=== PATIENT | female | born 1965 | race Caucasian/White ===

== ENCOUNTER 2017-12-14 18:50 | Emergency (ER) | payer OTHER ==
[2017-12-14 18:58] VITALS: BMI 19.1
[2017-12-14 19:00] VITALS: O2SAT 100
[2017-12-14 19:32] VITALS: BP 128/81; PULSE 70; RESP 17; TEMP 98
--- NOTE | 2017-12-14 19:38 | ED PDOC ---
Arrival/HPI - General Chief Complaint: High Blood Pressure Time Seen by Provider: 12/14/17 19:04 - History of Present Illness Narrative History of Present Illness (Text): 12/14/17 19:35 52 yo female, presents for eval, after checking her b/p yesterday and noting it to be 160 systolic. pt stats she was asymptomatic during b/p check. upon arrival to ed b/p 128 sysotlic, denies complaints. no cp fever, cough, sob, abd pain, n/v/d, or other complaitns Past Medical History - Infectious Disease Hx of Infectious Diseases: None - Tetanus Immunization Tetanus Immunization: Unknown - Reproductive Menopause: No - Cardiac Hx Cardiac Disorders: Yes Hx Hypertension: Yes - Pulmonary Hx Respiratory Disorders: No - Neurological Hx Neurological Disorder: No - HEENT Hx HEENT Disorder: No - Renal Hx Renal Disorder: No - Endocrine/Metabolic Hx Endocrine Disorders: No - Hematological/Oncological Hx Blood Disorders: No - Integumentary Hx Dermatological Disorder: No - Musculoskeletal/Rheumatological Hx Musculoskeletal Disorders: No Hx Falls: No - Gastrointestinal Hx Gastrointestinal Disorders: No - Genitourinary/Gynecological Hx Genitourinary Disorders: No - Psychiatric Hx Psychophysiologic Disorder: No Hx Depression: No Hx Emotional Abuse: No Hx Physical Abuse: No Hx Substance Use: No - Past Surgical History Past Surgical History: No Previous - Anesthesia Hx Anesthesia: No - Suicidal Assessment Feels Threatened In Home Enviroment: No Family/Social History Family/Social History: Unknown Family HX Smoking Status: Never Smoked Hx Alcohol Use: No Hx Substance Use: No Hx Substance Use Treatment: No Allergies/Home Meds Allergies/Adverse Reactions: Allergies No Known Allergies Allergy (Verified 06/23/14 03:44) Home Medications: Home Meds Medication Instructions Recorded Confirmed Atenolol 50 mg PO DAILY 11/29/12 06/23/14 Calcium/Cyanocobalamin [Vitamin 1,000 mcg PO BID 04/10/14 06/23/14 B-12 23 mg-1000 Mcg] Ferrous Sulfate [Ferrous Sulfate] 325 mg PO TID 04/10/14 06/23/14 Ranitidine HCl [Zantac 150] 150 mg PO BID 04/10/14 06/23/14 Review of Systems - Review of Systems Constitutional: Normal Eyes: Normal ENT: Normal Respiratory: Normal Cardiovascular: Normal Gastrointestinal: Normal Genitourinary Female: Normal Musculoskeletal: Normal Skin: Normal Neurological: Normal Endocrine: Normal Hemo/Lymphatic: Normal Psychiatric: Normal Physical Exam Vital Signs Temp Pulse Resp BP Pulse Ox 12/14/17 19:15 98.0 F 70 17 128/81 100 12/14/17 18:59 98 F 79 18 140/77 100 Temperature: Afebrile Blood Pressure: Normal Pulse: Regular Respiratory Rate: Normal Appearance: Positive for: Well-Appearing, Non-Toxic, Comfortable, Other ( smiling in nad) Pain Distress: None Mental Status: Positive for: Alert and Oriented X 3 - Systems Exam Head: Present: Atraumatic, Normocephalic Pupils: Present: PERRL Extroacular Muscles: Present: EOMI Conjunctiva: Present: Normal Mouth: Present: Moist Mucous Membranes Neck: Present: Normal Range of Motion Respiratory/Chest: Present: Clear to Auscultation, Good Air Exchange. No: Respiratory Distress, Accessory Muscle Use Cardiovascular: Present: Regular Rate and Rhythm, Normal S1, S2. No: Murmurs Abdomen: No: Tenderness, Distention, Peritoneal Signs, Rebound, Guarding Back: Present: Normal Inspection Upper Extremity: Present: Normal Inspection. No: Cyanosis, Edema Lower Extremity: Present: Normal Inspection. No: Edema Neurological: Present: GCS=15, CN II-XII Intact, Speech Normal Skin: Present: Warm, Dry, Normal Color. No: Rashes Psychiatric: Present: Alert, Oriented x 3, Normal Insight, Normal Concentration Medical Decision Making ED Course and Treatment: 12/14/17 19:37 asymympomatic htn - pt declines any further eval in er, blood work, as b/p is now 128 systolic. advise outpt f/u Disposition/Present on Arrival - Present on Arrival Any Indicators Present on Arrival: No History of DVT/PE: No History of Uncontrolled Diabetes: No Urinary Catheter: No History of Decub. Ulcer: No History Surgical Site Infection Following: None - Disposition Have Diagnosis and Disposition been Completed?: Yes Diagnosis: High blood pressure Disposition: HOME/ ROUTINE Disposition Time: 19:38 Patient Problems: Current Active Problems Problem Status Onset High blood pressure Acute Condition: STABLE Discharge Instructions (ExitCare): High Blood Pressure in Adults Print Language: DIVEHI Additional Instructions: please follow up with your doctor. please return to er with worsening symptoms or concerns. Referrals: [facility] [employer] [facility], [Primary Care Provider] - Follow up with primary [facility] [Outside] - Follow up with primary [facility] [Outside] - Follow up with primary Forms: [employer] (Maltese)
== END 2017-12-14 19:43 | disposition home or self-care (01) ==
LOC: ED 18:50
DX: I10 Essential (primary) hypertension (principal)

== ENCOUNTER 2018-10-31 11:58 | Emergency (ER) | payer OTHER ==
[2018-10-31 12:14] VITALS: BP 121/74; PULSE 77; RESP 18; TEMP 98.6; O2SAT 100
--- NOTE | 2018-10-31 12:35 | ED PDOC ---
Arrival/HPI - General Chief Complaint: ENT Problem Time Seen by Provider: 10/31/18 12:11 Historian: Patient - History of Present Illness Narrative History of Present Illness (Text): 10/31/18 12:31 53 year old female, with past medical history of hypertension, presents to the ED for evaluation of right ear pain since 2 weeks. Patient informs unchanged symptoms since onset but denies any trauma or injury to the area. Patient denies following up with her PMD regarding the symptoms. Patient denies any other associated somatic complaints. Patient denies any fevers, chills, sore throat, headache, dizziness, chest pain, shortness of breath, dyspnea on exertion, cough, abdominal pain, nausea, vomiting, diarrhea, back pain, neck pain, or any other complaints. PMD: Dr. Segura Time/Duration: > week Symptom Onset: Gradual Symptom Course: Unchanged Quality: Aching Activities at Onset: Light Context: Home Past Medical History - Provider Review Nursing Documentation Reviewed: Yes - Infectious Disease Hx of Infectious Diseases: None - Tetanus Immunization Tetanus Immunization: Unknown - Cardiac Hx Cardiac Disorders: Yes Hx Hypertension: Yes - Pulmonary Hx Respiratory Disorders: No - Neurological Hx Neurological Disorder: No - HEENT Hx HEENT Disorder: No - Renal Hx Renal Disorder: No - Endocrine/Metabolic Hx Endocrine Disorders: No - Hematological/Oncological Hx Blood Disorders: No - Integumentary Hx Dermatological Disorder: No - Musculoskeletal/Rheumatological Hx Musculoskeletal Disorders: No Hx Falls: No - Gastrointestinal Hx Gastrointestinal Disorders: No - Genitourinary/Gynecological Hx Genitourinary Disorders: No - Psychiatric Hx Psychophysiologic Disorder: No Hx Substance Use: No - Past Surgical History Past Surgical History: No Previous - Anesthesia Hx Anesthesia: No - Suicidal Assessment Feels Threatened In Home Enviroment: No Family/Social History - Physician Review Nursing Documentation Reviewed: Yes Family/Social History: No Known Family HX Smoking Status: Never Smoked Hx Alcohol Use: No Hx Substance Use: No Hx Substance Use Treatment: No Allergies/Home Meds Allergies/Adverse Reactions: Allergies No Known Allergies Allergy (Verified 06/23/14 03:44) Home Medications: Home Meds Medication Instructions Recorded Confirmed RX: Atenolol 50 mg PO DAILY 11/29/12 06/23/14 Calcium/Cyanocobalamin [Vitamin 1,000 mcg PO BID 04/10/14 06/23/14 B-12 23 mg-1000 Mcg] Ferrous Sulfate 325 mg PO TID 04/10/14 06/23/14 Ranitidine HCl [Zantac 150] 150 mg PO BID 04/10/14 06/23/14 Review of Systems - Physician Review All systems were reviewed & negative as marked: Yes - Review of Systems Constitutional: absent: Fevers ENT: Other (Rigth ear pain) Respiratory: absent: SOB Cardiovascular: absent: Chest Pain Gastrointestinal: absent: Abdominal Pain, Diarrhea, Nausea, Vomiting Genitourinary Female: absent: Dysuria Musculoskeletal: absent: Back Pain, Neck Pain Skin: absent: Rash Neurological: absent: Headache, Dizziness Psychiatric: absent: Anxiety Physical Exam Vital Signs Reviewed: Yes Vital Signs Temp Pulse Resp BP Pulse Ox 10/31/18 12:12 98.6 F 77 18 121/74 100 Temperature: Afebrile Blood Pressure: Normal Pulse: Regular Respiratory Rate: Normal Appearance: Positive for: Well-Appearing, Non-Toxic, Comfortable Pain Distress: None Mental Status: Positive for: Alert and Oriented X 3 - Systems Exam Head: Present: Atraumatic, Normocephalic Pupils: Present: PERRL Extroacular Muscles: Present: EOMI Conjunctiva: Present: Normal Ears: Present: Normal, NORMAL TM, Other (No mastoid tenderness). No: Erythema, TM Bulging, TM Perf Respiratory/Chest: Present: Clear to Auscultation, Good Air Exchange. No: Respiratory Distress, Accessory Muscle Use Cardiovascular: Present: Regular Rate and Rhythm, Normal S1, S2. No: Murmurs Upper Extremity: Present: Normal Inspection. No: Cyanosis, Edema Lower Extremity: Present: Normal Inspection. No: Edema Neurological: Present: GCS=15, Speech Normal Skin: Present: Warm, Dry, Normal Color. No: Rashes Psychiatric: Present: Alert, Oriented x 3, Normal Insight, Normal Concentration Medical Decision Making ED Course and Treatment: 10/31/18 12:36 Impression: 53 year old female presents to the ED for evaluation of right ear pain. Plan: -- Referral to ENT Specialist -- Reassess and disposition Prior Visits: Notes and results from previous visits were reviewed. Progress Notes: 10/31/18 15:58 right ear pain no mastoid tenderness well appearing no om. pt states pain worse with swallowing, ?eustacian tube dysfunciton. stable for dc. pt on phone in nad. - Scribe Statement The provider has reviewed the documentation as recorded by the Scribe Pb Collins. All medical record entries made by the Scribe were at my direction and personally dictated by me. I have reviewed the chart and agree that the record accurately reflects my personal performance of the history, physical exam, medical decision making, and the department course for this patient. I have also personally directed, reviewed, and agree with the discharge instructions and disposition. Disposition/Present on Arrival - Present on Arrival Any Indicators Present on Arrival: No History of DVT/PE: No History of Uncontrolled Diabetes: No Urinary Catheter: No History of Decub. Ulcer: No History Surgical Site Infection Following: None - Disposition Have Diagnosis and Disposition been Completed?: Yes Diagnosis: Ear pain Disposition: HOME/ ROUTINE Disposition Time: 12:00 Patient Problems: Current Active Problems Problem Status Onset Ear pain Acute Condition: STABLE Discharge Instructions (ExitCare): Eustachian Tube Problems (DC) Additional Instructions: return to er with worsening symptoms or concerns. you will need more testing as an outpatient. return to any er with worsenign. Referrals: Klaus Phan DO [[facility]] - Follow up with primary Forms: [employer] (Hebrew)
== END 2018-10-31 13:40 | disposition home or self-care (01) ==
LOC: ED 11:58
DX: H92.01 Otalgia, right ear (principal); I10 Essential (primary) hypertension